=== PATIENT | male | born 2000 | race Caucasian/White ===

== ENCOUNTER → 2021-05-16 | Outpatient (CLI) | payer OTHER ==
--- NOTE | ~2021-05-16 | PFR/MVV ---
[facility] [place] [address] PULMONARY FUNCTION MVV/REPORT Name: BOOM DENNEY Room #: [facility].#: [id number] Admission: 05/16/21 Attend Phys: Cody Castillo MD Discharge: Date of : 01 Report #: [id number] THIS REPORT FOR: //name// >> SPIROMETRY: (BTPS) Height: in cm Weight: lbs kg Exam Date: PRE-RX POST-RX PRED BEST %PRED BEST %PRED %CHG FVC LITERS . . . . . . FEV1 LITERS . . . . . . FEV1/FVC % . . . . . . ZFE93-30% L/Sec . . . . . . PEF L/SEC . . . . . . FEF50/FIF50 UNITLESS . . . . . . MVV L/Min . . . f 1/Min . . . >> LUNG VOLUMES: (BTPS) PRE-RX POST-RX PRED AVG %PRED AVG %PRED %CHG VC Liters . . . . . . TLC Liters . . . . . . RV Liters . . . . . . RV/TLC % . . . . . . FRC PL Liters . . . . . . FRC N2 Liters . . . . . . ERV Liters . . . . . . IC Liters . . . . . . >> DIFFUSION: DLCO ml/Min/mmHg . . . . . . DL Yoselyn ml/Min/mmHg . . . . . . DLCO/VA ml/Min/mmHg . . . . . . VA Liters . . . . . . COMMENTS: COMMENTS: >> RESISTANCE: [facility] [address] [place] [address] PULMONARY FUNCTION MVV/REPORT Name: JUMANABOOM LACIE Room #: [facility]#: [id number] Admission: 05/16/21 Attend Phys: Cody Castillo MD Discharge: Date of : 01 Report #: [id number] PRE-RX PRED AVG %PRED Raw Total cmH20/L/Sec . . . Raw Insp cmH20/L/Sec . . . Raw Exp cmH20/L/Sec . . . Raw cmH20/L/Sec . . . Gaw L/Sec/cmH20 . . . sRaw cmH20 Sec . . . sGaw l/cmH20 Sec . . . Vtq Liters . . . # = OUTSIDE 95% CONFIDENCE INTERVAL CALIBRATION: PRED: 3.00 ACTUAL: EXP 3.01 INSP 3.02 [facility] [id number] >> INTERPRETATION/IMPRESSION: DATE OF SERVICE: 05/16/2021 PULMONARY FUNCTION STUDIES SPIROMETRY: FEV1 is 5.26 liters (127% predicted), FVC is 6.37 liters (142% predicted), FEV1/FVC ratio is 82%. There is no significant response to bronchodilator therapy. LUNG VOLUMES: Total lung capacity is normal at 7.76 liters (135%). Diffusing capacity is normal. IMPRESSION: Pulmonary function studies are normal. By: Roney Lafleur MD /nt
== END ==
LOC: PUL 11:03
PROVIDERS: ATTEND Family Medicine
DX: Z01.812 Encounter for preprocedural laboratory examination (principal); Z20.822 Contact with and (suspected) exposure to COVID-19; J45.41 Moderate persistent asthma with (acute) exacerbation